=== PATIENT | female | born 2000 | race Caucasian/White ===

== ENCOUNTER 2025-03-19 23:03 | Emergency (ER) | payer OTHER ==
[2025-03-19 23:46] LABS: #Basophils 0.08 10x3/uL (0.0-0.2); #Eosinophils 0.27 10x3/uL (0.0-0.5); #Monocytes 0.92 10x3/uL (0.0-1.1); #Neutrophils 4.04 10x3/uL (1.5-8.4); %Basophils 0.9 % (0.0-2.0); %Eosinophils 3.1 % (0.0-6.0); %Lymphocytes 37.5 % (18.0-47.0); %Monocytes 10.5 % (0.0-10.0); %Neutrophils 46.3 % (40.0-75.0); Hematocrit 30.5 % (34.9-44.5); Hemoglobin 8.9 g/dL (12.0-15.5); Mean Corpuscular Hemoglobin 22.0 pg (27.0-33.0); Mean Corpuscular Volume 75.5 fL (81.6-98.3); Platelet Count 227 10x3/uL (150-450); Red Blood Cell (RBC) Count 4.04 10x6/uL (3.90-5.03); White Blood Cell (WBC) Count 8.74 10x3/uL (3.5-10.5)
[2025-03-19 23:51] LABS: ALT (SGPT) 243 U/L (Less than 34); AST (SGOT) 108 U/L (11-34); Albumin 3.6 g/dL (3.1-4.5); Alkaline Phosphatase 55 U/L (40-110); Anion Gap 11 mmol/L (10-20); BUN (Urea Nitrogen) 8 mg/dL (7.0-18.7); Bilirubin, Total 0.2 mg/dL (0.3-1.2); Calc. Creatinine Clearance 0 mL/min (70-130); Calcium 8.9 mg/dL (7.8-10.44); Carbon Dioxide 26 mmol/L (22-29); Chloride 104 mmol/L (98-107); Globulin 2.8 g/dL (2.4-3.5); Glucose 91 mg/dL (70-105); Potassium 4.1 mmol/L (3.5-5.1); Sodium 137 mmol/L (136-145)
[2025-03-20] MEDS ORDERED: levETIRAcetam 500 MG (5 mL) VIAL ONE (01:19)
== END 2025-03-20 02:27 | disposition home or self-care (01) ==
LOC: CSHERS 23:03
DX: R56.9 Unspecified convulsions (principal)
CPT/HCPCS: 80053; 84702; 85025; 93005; 93010; 96365; J1953